=== PATIENT | male | born 1975 | race Two or more races ===

== ENCOUNTER 2024-05-30 16:51 | Emergency (ER) | payer OTHER ==
[~2024-05-30] VITALS: Ht 165.1 cm; Wt 68.2 kg
[2024-05-30 17:00] VITALS: TEMP 98.3
[2024-05-30 21:10] VITALS: BP 116/61; PULSE 68; RESP 16; O2SAT 98
[2024-05-30] MEDS ORDERED: KETOROLAC TROMETHAMINE 30 MG/ML VIAL IVP ONE (22:30)
[2024-05-30] MEDS: ACETAMINOPHEN 1000 MG/ISO-OSM 100 ML IV ONE (22:47)
[2024-05-30] MEDS: MethylPREDNISolone SOD SUCC 125 MG/2 ML VIAL IVP ONE (22:48)
[2024-05-30] MEDS: KETOROLAC TROMETHAMINE 15 MG/ML VIAL IVP ONE (22:48)
== END 2024-05-31 04:36 | disposition left against medical advice (07) ==
LOC: EMS 16:51
DX: M79.10 Myalgia, unspecified site (principal); Z65.3 Problems related to other legal circumstances
CPT/HCPCS: 99284; 96365; 96375; J1885; J2919; J0131